=== PATIENT | female | born 1945 | race Caucasian/White ===

== ENCOUNTER 2024-01-12 07:50 | Day surgery (SDC) | payer MEDICARE, OTHER ==
[2024-01-12] VITALS (13 sets, daily range): BP systolic 92–123; BP diastolic 9–52; PULSE 64–75; RESP 15–30
[~2024-01-12] VITALS: Ht 172.7 cm; Wt 48.5 kg
[2024-01-12] MEDS ORDERED: DOCU100C33 PO (09:42)
[2024-01-12] MEDS ORDERED: POTA-364 PO (09:42)
[2024-01-12] MEDS ORDERED: CHOL500062 PO (09:42)
[2024-01-12] MEDS ORDERED: IPRA3AMP24 IH (09:42)
[2024-01-12] MEDS ORDERED: BUDE180H IH (09:42)
[2024-01-12] MEDS ORDERED: FERR-63 PO (09:42)
[2024-01-12] MEDS ORDERED: PRED5TAB PO (09:42)
[2024-01-12] MEDS ORDERED: CYCL5TAB PO (09:42)
[2024-01-12] MEDS ORDERED: MONT-39 PO (09:42)
[2024-01-12] MEDS ORDERED: SENN8.6T32 PO (09:42)
[2024-01-12] MEDS ORDERED: BENZ-226 PO (09:42)
[2024-01-12] MEDS ORDERED: MAGN400C PO (09:42)
[2024-01-12] MEDS ORDERED: CALC500T36 PO (09:42)
[2024-01-12] MEDS ORDERED: ASPI-1197 PO (09:42)
[2024-01-12] MEDS ORDERED: BUSP10TA3 PO (09:42)
[2024-01-12] MEDS ORDERED: FURO-151 PO (09:42)
[2024-01-12] MEDS ORDERED: PANT40TA54 PO (09:42)
[2024-01-12] MEDS ORDERED: SERT25TA PO (09:42)
[2024-01-12] MEDS ORDERED: PREG25CA19 PO (09:42)
[2024-01-12] MEDS ORDERED: ALPR0.255 PO (09:42)
[2024-01-12] MEDS ORDERED: METO-296 PO (09:42)
[2024-01-12] MEDS ORDERED: ATOR40TA69 PO (09:42)
[2024-01-12] MEDS ORDERED: FLUT1BLS3 IH (09:42)
[2024-01-12] MEDS ORDERED: DULO30CA52 PO (09:42)
[2024-01-12] MEDS ORDERED: SPIR25TA PO (09:42)
[2024-01-12] MEDS ORDERED: AMIO200T68 PO (09:42)
[2024-01-12] MEDS ORDERED: DICY20TA3 PO (09:42)
[2024-01-12] MEDS: 0.9%NACL 1000ML 1,000 ML IV ONE (09:45)
[2024-01-12] MEDS ORDERED: PROPOFOL 10 MG/ML 20ML VIAL IV ONE (09:50)
[2024-01-12] MEDS: IPRATROPIUM/ALBUTEROL SULFATE 3 ML SOLUTION IH ONE (10:22)
[2024-01-12] MEDS ORDERED: IPRATROPIUM/ALBUTEROL SULFATE 3 ML SOLUTION IH PRN (10:30)
== END 2024-01-12 12:00 ==
LOC: DAH 07:50 → ENDO 07:50
PROVIDERS: ATTEND Internal Medicine
DX: R13.10 Dysphagia, unspecified (principal); K29.50 Unspecified chronic gastritis without bleeding; K22.2 Esophageal obstruction; K21.00 Gastro-esophageal reflux disease with esophagitis, without bleeding; K44.9 Diaphragmatic hernia without obstruction or gangrene; K31.89 Other diseases of stomach and duodenum; J44.9 Chronic obstructive pulmonary disease, unspecified; K31.84 Gastroparesis; K59.00 Constipation, unspecified; D64.9 Anemia, unspecified; E78.5 Hyperlipidemia, unspecified; F33.8 Other recurrent depressive disorders; I11.0 Hypertensive heart disease with heart failure; I50.9 Heart failure, unspecified; I25.10 Atherosclerotic heart disease of native coronary artery without angina pectoris; I30.9 Acute pericarditis, unspecified; J96.90 Respiratory failure, unspecified, unspecified whether with hypoxia or hypercapnia; I71.21 Aneurysm of the ascending aorta, without rupture; N19 Unspecified kidney failure; Z87.891 Personal history of nicotine dependence; Z79.899 Other long term (current) drug therapy
CPT/HCPCS: 43249; 43239; 94640; J7030; J2704; A4620; A4215 ×2; A4222; A4221; A4663; A4606; C1726; J3490